=== PATIENT | female | born 1960 | race Caucasian/White ===

== ENCOUNTER 2024-10-28 16:20 | Inpatient (IN) | payer MEDICARE ==
[~2024-10-28] VITALS: Ht 152.4 cm; Wt 93.1 kg
[2024-10-28] MEDS: SODIUM CHLORIDE 0.9% 1,000 ML IV ONE (16:29)
[2024-10-28] MEDS: ACETAMINOPHEN 1000 MG/ISO-OSM 100 ML IV ONE (16:30)
[2024-10-28] MEDS ORDERED: 0.9% SODIUM CHLORIDE 10 ML SYRINGE IVP PRN (16:30)
[2024-10-28 16:48] LABS: BASOPHILS % (AUTO) 0.1 % (0.0-2.0); EOSINOPHILS % (AUTO) 0 % (1.0-6.0); HEMATOCRIT 41.6 % (36-46); HEMOGLOBIN 13.7 g/dL (12.0-16.0); LYMPHOCYTES # (AUTO) 0.4 K/uL (1.0-4.8); LYMPHOCYTES % (AUTO) 3.6 % (22.0-44.0); MEAN CORPUSCULAR HEMOGLOBIN 26.7 pg (26.0-34.0); MEAN CORPUSCULAR VOLUME 81 fL (80-100); MONOCYTES # (AUTO) 0.6 K/uL (0.1-1.0); MONOCYTES % (AUTO) 5.4 % (2.0-9.0); NEUTROPHILS # (AUTO) 10.7 K/uL (1.8-7.7); PLATELET COUNT (AUTO) 154 K/uL (150-450); RED BLOOD CELL COUNT(AUTO) 5.14 MIL/uL (4.00-5.20); RED CELL DISTRIBUTION WIDTH 13.8 % (11.5-14.5); WHITE BLOOD COUNT (AUTO) 11.8 K/uL (4.5-11.0)
[2024-10-28 16:53] LABS: ANION GAP 9 mmol/L (8-16); CALCIUM, TOTAL 8.3 mg/dL (8.8-10.5); CARBON DIOXIDE 25 mmol/L (22-29); CHLORIDE 95 mmol/L (98-107); CREATININE 1.07 mg/dL (0.60-1.30); GLOMERULAR FILTR. RATE CALC 51 mL/min (>60); GLUCOSE,RANDOM 199 mg/dL (70-110); POTASSIUM 3.1 mmol/L (3.5-5.1); SODIUM SERUM 129 mmol/L (136-145); UREA NITROGEN, BLOOD 15 mg/dL (7-18)
[2024-10-28 16:56] LABS: NEUTROPHILS % (AUTO) 90.9 % (40.0-70.0); PROTHROMBIN TIME 12.6 SEC (9.4-11.6)
[2024-10-28 16:59] LABS: ALANINE AMINOTRANSFERASE 44 U/L (12-78); ALBUMIN 2.9 g/dL (3.4-5.0); ALKALINE PHOSPHATASE 110 U/L (46-116); ASPARTATE AMINOTRANSFERASE 42 U/L (15-37); BILIRUBIN,TOTAL 1.5 mg/dL (0.1-1.0); GLUCOSE,RANDOM 197 mg/dL (70-110)
[2024-10-28] MEDS: SODIUM CHLORIDE 0.9% 1,950 ML IV ONE (17:02)
[2024-10-28 17:04] LABS: B-TYPE NATRIURETIC PEPTIDE 244 pg/mL (0-100)
[2024-10-28 17:05] LABS: TROPONIN I-HIGH SENSITIVITY 446 ng/L (<51)
[2024-10-28 17:07] LABS: LACTIC ACID 2.7 mmol/L (0.4-2.0)
[2024-10-28 17:26] LABS: APPEARANCE,URINE CLEAR (CLEAR); BILIRUBIN,URINE NEGATIVE (NEGATIVE); COLOR,URINE YELLOW (YELLOW); GLUCOSE, URINE (UA) NEGATIVE (NEGATIVE); LEUKOCYTE ESTERASE ,URINE NEGATIVE (NEGATIVE); NITRATE,URINE NEGATIVE (NEGATIVE); OCCULT BLOOD,URINE MODERATE (NEGATIVE); PH,URINE 6.5 (5.0-8.0); PROTEIN,URINE >600,SEE CONFIRM mg/dL (NEGATIVE); SPECIFIC GRAVITIY, URINE 1.021 (1.003-1.030)
[2024-10-28] MEDS: KETOROLAC TROMETHAMINE 30 MG/ML VIAL IVP ONE (17:27)
[2024-10-28] MEDS: PIPERACILLIN/TAZO 3.375 GM/D5W 50 ML IV ONE (17:27)
[2024-10-28 17:34] LABS: RBC,URINE 0-2 /HPF (0-2); SULFOSALICYLIC ACID,URINE 4+ (Negative); WBC,URINE None Seen /HPF (0-5)
[2024-10-28 17:35] LABS: BACTERIA,URINE None Seen /HPF (None Seen); SQUAMOUS EPITHELIAL CELL,UR Few /LPF (None Seen); YEAST,URINE None Seen /HPF (None Seen)
[2024-10-28] MEDS ORDERED: HEPARIN SODIUM,PORCINE 5,000 UNITS/ML VIAL IVP ONE (18:45)
[2024-10-28] MEDS ORDERED: HEPARIN SODIUM,PORCINE 5,000 UNITS/ML VIAL IVP PRN ×2 (18:45)
[2024-10-28] MEDS ORDERED: METF-81 PO (19:06)
[2024-10-28 19:32] LABS: PROTHROMBIN TIME 13.1 SEC (9.4-11.6)
[2024-10-28] MEDS: HEPARIN SODIUM 25000 UNITS/D5W 250 ML IV PRN (19:39)
[2024-10-28] MEDS: HEPARIN SODIUM,PORCINE 5,000 UNITS/ML VIAL IVP ONE (19:39)
[2024-10-28] MEDS ORDERED: NOREPINEPHRINE 8 MG/0.9 % NACL 250 ML IV PRN (20:15)
[2024-10-28] MEDS: POTASSIUM CHLORIDE 20 MEQ ER TABLET PO ONE (21:34)
[2024-10-28] MEDS ORDERED: BISACODYL 10 MG RECTAL RECTAL SUPPOSITORY PR PRN (23:15)
[2024-10-28] MEDS ORDERED: IPRATROPIUM BROMIDE 0.5 MG/2.5 ML NEB SOLUTION NEB PRN (23:15)
[2024-10-28] MEDS ORDERED: ZOLPIDEM TARTRATE 5 MG TABLET PO PRN (23:15)
[2024-10-28] MEDS ORDERED: ALBUTEROL SULFATE 2.5 MG/0.5 ML NEB SOLUTION NEB PRN (23:15)
[2024-10-28] MEDS ORDERED: MAGNESIUM HYDROXIDE SUSPENSION 30 ML UDCUP PO PRN (23:15)
[2024-10-28] MEDS: PIPERACILLIN/TAZO 3.375 GM/D5W 50 ML IV SCH (23:40)
[2024-10-28 23:54] LABS: TROPONIN I-HIGH SENSITIVITY 582 ng/L (<51)
[2024-10-29] MEDS ORDERED: HEPARIN SODIUM,PORCINE 5,000 UNITS/ML VIAL SQ SCH
[2024-10-29] MEDS: ACETAMINOPHEN 325 MG TABLET PO PRN (01:53)
[2024-10-29 04:00] VITALS: BP 106/59; PULSE 98; RESP 26; TEMP 100.3; O2SAT 95
[2024-10-29] MEDS ORDERED: SODIUM CHLORIDE 0.9% 250 ML IV ONE (05:25)
[2024-10-29 06:35] LABS: BASOPHILS % (AUTO) 0.8 % (0.0-2.0); EOSINOPHILS % (AUTO) 0 % (1.0-6.0); HEMATOCRIT 40.8 % (36-46); HEMOGLOBIN 13.7 g/dL (12.0-16.0); LYMPHOCYTES # (AUTO) 0.5 K/uL (1.0-4.8); LYMPHOCYTES % (AUTO) 3.5 % (22.0-44.0); MEAN CORPUSCULAR HEMOGLOBIN 27.1 pg (26.0-34.0); MEAN CORPUSCULAR HGB CONC 33.5 G/dL (31.0-37.0); MEAN CORPUSCULAR VOLUME 81 fL (80-100); MONOCYTES % (AUTO) 6.8 % (2.0-9.0); NEUTROPHILS # (AUTO) 12.5 K/uL (1.8-7.7); PLATELET COUNT (AUTO) 152 K/uL (150-450); RED BLOOD CELL COUNT(AUTO) 5.05 MIL/uL (4.00-5.20); RED CELL DISTRIBUTION WIDTH 14.3 % (11.5-14.5); WHITE BLOOD COUNT (AUTO) 14.1 K/uL (4.5-11.0)
[2024-10-29 06:48] LABS: CALCIUM, TOTAL 8.4 mg/dL (8.8-10.5); CREATININE 1.25 mg/dL (0.60-1.30); POTASSIUM 3.1 mmol/L (3.5-5.1)
[2024-10-29 06:50] LABS: NEUTROPHILS % (AUTO) 88.9 % (40.0-70.0)
[2024-10-29] MEDS ORDERED: HEPARIN SODIUM,PORCINE 5,000 UNITS/ML VIAL IVP PRN ×2 (07:30)
[2024-10-29] MEDS ORDERED: HEPARIN SODIUM 25000 UNITS/D5W 250 ML IV PRN (07:30)
[2024-10-29 08:00] VITALS: BP 113/64; PULSE 98; RESP 16; TEMP 99.9; O2SAT 96
[2024-10-29] MEDS: ETHYL ALCOHOL 62% ANTISEPTIC NASAL SANITIZER 0.6 ML AMPUL NASAL SCH (08:29)
[2024-10-29] MEDS: PANTOPRAZOLE SODIUM 40 MG/VIAL IVP SCH (08:29)
[2024-10-29] MEDS ORDERED: INSULIN LISPRO 100 UNITS/ML SQ PRN (08:30)
[2024-10-29] MEDS ORDERED: DEXTROSE 50%-WATER 25 GM/50 ML SYRINGE IVP PRN (08:30)
[2024-10-29] MEDS: DOCUSATE SODIUM 100 MG CAPSULE PO SCH (08:30)
[2024-10-29] MEDS: POTASSIUM CHLORIDE 20 MEQ ER TABLET PO ONE ×3 (08:30→14:38)
[2024-10-29] MEDS: VANCOMYCIN 1.5 GM/WATER(PEG) 300 ML IV ONE (09:01)
[2024-10-29] MEDS: ASPIRIN 81 MG DR TABLET PO SCH (09:03)
[2024-10-29 10:59] LABS: TROPONIN I-HIGH SENSITIVITY 431 ng/L (<51)
[2024-10-29] MEDS: SODIUM CHLORIDE 0.9% 1,000 ML IV SCH (11:30)
[2024-10-29 11:56] LABS: GLUCOMETER DEV NAME(LOC) ICUN.5; GLUCOSE,POINT OF CARE 150 MG/DL (70-110)
[2024-10-29 12:00] VITALS: BP 93/44; PULSE 99; RESP 13; TEMP 99.7; O2SAT 96
[2024-10-29] MEDS: ONDANSETRON HCL 4 MG/2 ML VIAL IVP PRN (13:42)
[2024-10-29] MEDS ORDERED: SODIUM CHLORIDE 0.9% 1,000 ML IV SCH ×2 (15:00)
[2024-10-30] MEDS ORDERED: VANCOMYCIN 1.5 GM/WATER(PEG) 300 ML IV SCH (08:00)
== END 2024-10-29 16:50 | disposition short-term general hospital (02) | DRG 871 ==
LOC: EMS 16:50 → EDH 21:00 → ICU 10-29 01:30
PROVIDERS: ADMIT Hospitalist; ATTEND Hospitalist
DX: A41.89 Other specified sepsis (principal); G93.41 Metabolic encephalopathy; I21.4 Non-ST elevation (NSTEMI) myocardial infarction; N17.9 Acute kidney failure, unspecified; E87.1 Hypo-osmolality and hyponatremia; Z68.41 Body mass index [BMI] 40.0-44.9, adult; E11.9 Type 2 diabetes mellitus without complications; K76.0 Fatty (change of) liver, not elsewhere classified; K44.9 Diaphragmatic hernia without obstruction or gangrene; E87.6 Hypokalemia; E66.01 Morbid (severe) obesity due to excess calories; F17.210 Nicotine dependence, cigarettes, uncomplicated; D25.9 Leiomyoma of uterus, unspecified; K80.20 Calculus of gallbladder without cholecystitis without obstruction; Z82.49 Family history of ischemic heart disease and other diseases of the circulatory system; Z88.5 Allergy status to narcotic agent; Z91.81 History of falling
CPT/HCPCS: 70450; 71045; 74176; 76705; 80048; 80076; 81001; 81002; 82947; 82962; 83605; 83735; 83880; 84132; 84145; 84484; 85025; 85610; 85730; 87040; 87077; 87081; 87186; 87205; 93005; 93306; 99291; J0131; J1644; J1885; J2405; J2470; J2543; J7030; J7050; 36415-L1; 36415-TC